=== PATIENT | female | born 1990 | race Caucasian/White ===

== ENCOUNTER 2017-12-23 13:30 | Inpatient (IN) | payer OTHER ==
[2017-12-23] MEDS ORDERED: ELECTROLYTE-148 SOLN 1,000 ML IV SCH (14:15)
[2017-12-23 14:28] VITALS: BMI 31.0
[2017-12-23] MEDS ORDERED: CITRIC ACID/SODIUM CITRATE 30 ML UNIT-DOSE CUP PO ONE (14:30)
--- NOTE | 2017-12-23 14:40 | HP ---
Past Medical History - Primary Care Physician PCP:: Lorenzo Black - Admission Chief Complaint: 38weeks, previous c/s , cholestasis of , request for sterlization History of Present Illness: 27 yo f g 4 p2012 , edc 513/18 by date 12/2217 by cabrera referred by DR ailyn CHASE for repeat c/s , patient requesting repeat c/s and tubal ligation, aware BTL is permanent,and not reversiable, has small failure risks and risks of ectopic, ulternatives explained History Source: Patient Limitations to Obtaining History: No Limitations - Past Medical History ...: 4 ...Para: 2 ...Term: 2 ...: 0 ...Spon : 1 ...Induced : 0 ...Multiple Gestation: 0 ...LMP: 03/28/17 ... Weeks Gestation by Dates: 38.3 ...EDC by Dates: 01/02/18 ...EDC by Sono: 01/11/18 - Past Surgical History Past Surgical History: Yes: Hx Myomectomy: No Hx Transabdominal Cerclage: No - Smoking History Smoking history: Never smoked Have you smoked in the past 12 months: No - Alcohol/Substance Use Hx Alcohol Use: No History of Substance Use: reports: None - Social History History of Recent Travel: No Home Medications - Allergies Allergies/Adverse Reactions: Allergies Allergy/AdvReac Type Severity Reaction Status Date / Time No Known Allergies Allergy Verified 09/02/14 06:36 - Home Medications Home Medications: Ambulatory Orders Acetaminophen [Tylenol .Regular Strength -] 650 mg PO Q4H PRN #0 tablet Ibuprofen Injection [Caldolor Injection -] 800 mg IVPB Q8H PRN #0 ij 09/03/14 Review of Systems - Review of Systems Constitutional: reports: No Symptoms Eyes: reports: No Symptoms HENT: reports: No Symptoms, Nasal Congestion Neck: reports: No Symptoms Cardiovascular: reports: No Symptoms Respiratory: reports: No Symptoms Gastrointestinal: reports: No Symptoms Genitourinary: reports: No Symptoms Musculoskeletal: reports: No Symptoms Integumentary: reports: Rash Neurological: reports: No Symptoms Endocrine: reports: No Symptoms Hematology/Lymphatic: reports: No Symptoms Psychiatric: reports: No Symptoms Physical Exam - Maternity Vital Signs: Vital Signs Temperature 98.6 F 12/23/17 13:30 Pulse Rate 86 12/23/17 13:30 Respiratory Rate 18 12/23/17 13:30 Blood Pressure 105/68 12/23/17 13:30 O2 Sat by Pulse Oximetry (%) Constitutional: Yes: Well Nourished, No Distress, Calm Eyes: Yes: WNL, Conjunctiva Clear, EOM Intact HENT: Yes: WNL, Atraumatic, Normocephalic Neck: Yes: WNL, Supple, Trachea Midline Cardiovascular: Yes: WNL, Regular Rate and Rhythm Breast(s): Yes: WNL - Abdominal Exam/OB Fundal Height: 38 Number of Fetuses: Single Presentation: Vertex Intensity: Unaware Monitor Mode: External Heart Rate Location: [facility] Category: I - Vaginal Exam/OB Vaginal Bleediing: No Speculum Exam: No Dilatation (cm): closed Effacement (%): 0 Amniotic Membrane Status: Intact Presentation: Vertex/Position Station: -3 - Physical Exam Musculoskeletal: Yes: WNL Extremities: Yes: WNL Edema: LLE: Trace, RLE: Trace Integumentary: Yes: Rash Deep Tendon Reflex Grade: Normal +2 Hemorrhage Risk Assessment - Risk Factors Medium Risk Factors: Yes: Prior , uterine surgery,or multiple laparotomies Risk Score: 1 Risk Level: Medium Risk Problem List - Problems (1) with 38 completed weeks gestation Code(s): Z3A.38 - 38 WEEKS GESTATION OF (2) Previous section Code(s): Z98.891 - HISTORY OF UTERINE SCAR FROM PREVIOUS SURGERY (3) Cholestasis during Code(s): O26.619 - LIVER AND BILIARY TRACT DISORD IN , UNSP TRIMESTER; K83.1 - OBSTRUCTION OF BILE DUCT Qualifiers: Trimester: third trimester Qualified Code(s): O26.613 - Liver and biliary tract disorders in , third trimester; K83.1 - Obstruction of bile duct ; K83.1 - Obstruction of bile duct (4) Sterilization Code(s): Z30.2 - ENCOUNTER FOR STERILIZATION Assessment/Plan admit , for repeat c/s, BTL, rba discussed
[2017-12-23] MEDS ORDERED: morphine SULFATE/Preservative Free 0.5 MG/ML (1cc Syringe) ONE (15:34)
[2017-12-23] MEDS ORDERED: ceFAZolin SODIUM 1 GM VIAL ONE ×2 (15:45→19:26)
[2017-12-23] MEDS ORDERED: ePHEDrine SULFATE 50 MG/1 ML AMPULE ONE (15:49)
[2017-12-23] MEDS ORDERED: OXYTOCIN 20 UNITS in 0.9% NS 20 UNIT/1,000 ML INFUS.BAG IV ONE ×2 (15:55→17:27)
[2017-12-23] MEDS ORDERED: IBUPROFEN 600 MG TABLET (FP) PO PRN (16:12)
[2017-12-23] MEDS ORDERED: ONDANSETRON 4 MG/2 ML VIAL IVPUSH PRN (16:12)
[2017-12-23] MEDS ORDERED: morphine SULFATE/Preservative Free 0.5 MG/ML (1cc Syringe) SPIN ONE (16:30)
[2017-12-23] MEDS ORDERED: oxyCODONE HCL 5 MG TABLET PO PRN ×2 (16:38)
[2017-12-23] MEDS ORDERED: METHYLERGONOVINE MALEATE 0.2 MG/1 ML AMP IM PRN (16:38)
[2017-12-23] MEDS ORDERED: BENZOCAINE 28 GM HEMORRHOIDAL OINTMENT PR PRN (16:38)
[2017-12-23] MEDS ORDERED: BENZOCAINE 20% 57 GM BOTTLE TP PRN (16:38)
[2017-12-23] MEDS ORDERED: WITCH HAZEL 50% (TUCKS) 40 PAD/JAR PAD TP PRN (16:38)
[2017-12-23] MEDS ORDERED: BUTORPHANOL TARTRATE 1 MG/ML VIAL IVPUSH PRN (16:41)
[2017-12-23] MEDS ORDERED: DEXTROSE 5%-LACTATED RINGERS 1,000 ML IV SCH (16:45)
[2017-12-23] MEDS ORDERED: OXYTOCIN 20 UNITS in 0.9% NS 20 UNIT/1,000 ML INFUS.BAG IV SCH ×2 (16:45→18:15)
[2017-12-23] MEDS ORDERED: diphenhydrAMINE HCL 25 MG CAPSULE (FP) PO PRN (16:59)
[2017-12-23] MEDS ORDERED: PROMETHAZINE HCL 25 MG/1 ML VIAL IVPB ONE (17:00)
[2017-12-23] MEDS ORDERED: OXYTOCIN 20 UNITS in 0.9% NS 1000 ML INFUS.BAG IV ONE (17:15)
[2017-12-23] MEDS: CEFAZOLIN 1 GM in DEXTROSE 5%-WATER - 50 ML IVPB SCH (18:55)
[2017-12-23] MEDS ORDERED: IBUPROFEN 800 MG/8 ML IJ IVPB ONE (19:27)
[2017-12-23] MEDS: IBUPROFEN 800 MG/8 ML IJ IVPB PRN (19:45)
[2017-12-24] MEDS ORDERED: OXYTOCIN 20 UNITS in 0.9% NS 20 UNIT/1,000 ML INFUS.BAG IV SCH (00:44)
[2017-12-24] MEDS: IBUPROFEN 800 MG/8 ML IJ IVPB PRN ×2 (01:23→15:10)
[2017-12-24] MEDS: CEFAZOLIN 1 GM in DEXTROSE 5%-WATER - 50 ML IVPB SCH ×3 (02:38→17:10)
[2017-12-24] MEDS: ACETAMINOPHEN 325 MG TABLET (FP) PO PRN ×2 (05:15→22:20)
[2017-12-24 07:49] LABS: BASO % 0.5 % (0-2.0); EOS % 0.2 % (0-4.5); HEMATOCRIT 34.1 % (32.4-45.2); HEMOGLOBIN 11.5 GM/dL (10.7-15.3); LYMPH % 16.2 % (8-40); MCH 31.5 pg (25.7-33.7); MCHC 33.9 g/dl (32.0-36.0); MEAN CELL VOLUME 92.8 fl (80-96); MEAN PLT VOLUME 10.5 fl (7.5-11.1); MONO % 6.6 % (3.8-10.2); NEUT % 76.5 % (42.8-82.8); PLATELET COUNT 174 K/MM3 (134-434); RBC 3.67 M/mm3 (3.60-5.2); RDW 13.6 % (11.6-15.6); WHITE BLOOD COUNT 9.7 K/mm3 (4.0-10.0)
[2017-12-24] MEDS ORDERED: DEXTROSE 5%-WATER - 50 ML IVPB ONE (09:11)
[2017-12-24] MEDS ORDERED: ceFAZolin SODIUM 1 GM VIAL ONE (09:11)
[2017-12-24] MEDS: ENOXAPARIN NA (PORCINE) 40 MG/0.4 ML DISP.SYRIN SQ SCH (09:27)
--- NOTE | 2017-12-24 14:21 | PN ---
Progress Note (short form) - Note Progress Note: POD #1 - s/p repeat /left tubal ligation (h/o right ectopic) under spinal anesthesia with duramorph. VSS. Pt. doing well, sitting up comfortably in chair. No complaints. Good pain control. No apparent anesthetic complications noted. Continue current care.
[2017-12-24] MEDS ORDERED: BISACODYL 10 MG SUPP.RECT RC PRN (16:39)
--- NOTE | 2017-12-24 19:52 | PN ---
Post Progress Note - Subjective Subjective: 27 yo Para 3 status post repeat , seen and evaluated. Doing well. Post Day: 1 Type of Delivery: Repeat C/S Vital Signs: Vital Signs Temperature 98.3 F 12/24/17 13:00 Pulse Rate 70 12/24/17 13:00 Respiratory Rate 18 12/24/17 15:00 Blood Pressure 123/70 12/24/17 13:00 O2 Sat by Pulse Oximetry (%) 99 12/23/17 17:30 Breast Exam: Yes: Soft Uterus: Yes: Fundus @ umbilicus Incision: Yes: Dressing dry and intact Abdomen/GI: Yes: Abdomen soft, Tolerating PO Lochia: Yes: Rubra Lochia, amount: Small Extremities: Yes: Calves non-tender Activity: Ambulating - Labs Labs: CBC WBC 9.7 K/mm3 (4.0-10.0) D 12/24/17 07:06 RBC 3.67 M/mm3 (3.60-5.2) 12/24/17 07:06 Hgb 11.5 GM/dL (10.7-15.3) 12/24/17 07:06 Hct 34.1 % (32.4-45.2) 12/24/17 07:06 MCV 92.8 fl (80-96) 12/24/17 07:06 MCH 31.5 pg (25.7-33.7) 12/24/17 07:06 MCHC 33.9 g/dl (32.0-36.0) 12/24/17 07:06 RDW 13.6 % (11.6-15.6) 12/24/17 07:06 Plt Count 174 K/MM3 (134-434) 12/24/17 07:06 MPV 10.5 fl (7.5-11.1) 12/24/17 07:06 Neutrophils % 76.5 % (42.8-82.8) 12/24/17 07:06 Lymphocytes % 16.2 % (8-40) D 12/24/17 07:06 Monocytes % 6.6 % (3.8-10.2) 12/24/17 07:06 Eosinophils % 0.2 % (0-4.5) 12/24/17 07:06 Basophils % 0.5 % (0-2.0) 12/24/17 07:06 Problem List - Problems (1) Status post repeat low transverse section Code(s): Z98.891 - HISTORY OF UTERINE SCAR FROM PREVIOUS SURGERY Assessment/Plan Status post repeat Low transverse Stable Ambulation Analgesia as needed Continue routine Post op care
[2017-12-24] MEDS: SIMETHICONE 80 MG TAB.CHEW (FP) PO PRN (22:17)
[2017-12-24] MEDS: IBUPROFEN 600 MG TABLET (FP) PO PRN (22:17)
--- NOTE | 2017-12-25 02:14 | PN ---
Post Progress Note - Subjective Subjective: 27 yo status post repeat , seen and evaluated. Doing well. Post Day: 2 Type of Delivery: Repeat C/S Vital Signs: Vital Signs Temperature 98.8 F 12/24/17 22:00 Pulse Rate 67 12/24/17 22:00 Respiratory Rate 18 12/24/17 22:00 Blood Pressure 113/66 12/24/17 22:00 O2 Sat by Pulse Oximetry (%) 99 12/23/17 17:30 Breast Exam: Yes: Soft Uterus: Yes: Fundus Firm Incision: Yes: Dressing dry and intact Abdomen/GI: Yes: Abdomen soft, Tolerating PO Lochia: Yes: Rubra Lochia, amount: Small Extremities: Yes: Calves non-tender Activity: Ambulating - Labs Labs: CBC WBC 9.7 K/mm3 (4.0-10.0) D 12/24/17 07:06 RBC 3.67 M/mm3 (3.60-5.2) 12/24/17 07:06 Hgb 11.5 GM/dL (10.7-15.3) 12/24/17 07:06 Hct 34.1 % (32.4-45.2) 12/24/17 07:06 MCV 92.8 fl (80-96) 12/24/17 07:06 MCH 31.5 pg (25.7-33.7) 12/24/17 07:06 MCHC 33.9 g/dl (32.0-36.0) 12/24/17 07:06 RDW 13.6 % (11.6-15.6) 12/24/17 07:06 Plt Count 174 K/MM3 (134-434) 12/24/17 07:06 MPV 10.5 fl (7.5-11.1) 12/24/17 07:06 Neutrophils % 76.5 % (42.8-82.8) 12/24/17 07:06 Lymphocytes % 16.2 % (8-40) D 12/24/17 07:06 Monocytes % 6.6 % (3.8-10.2) 12/24/17 07:06 Eosinophils % 0.2 % (0-4.5) 12/24/17 07:06 Basophils % 0.5 % (0-2.0) 12/24/17 07:06 Problem List - Problems (1) Status post repeat low transverse section Code(s): Z98.891 - HISTORY OF UTERINE SCAR FROM PREVIOUS SURGERY Assessment/Plan Status post repeat Low transverse Stable Ambulation Analgesia as needed Continue routine Post op care
[2017-12-25] MEDS: ENOXAPARIN NA (PORCINE) 40 MG/0.4 ML DISP.SYRIN SQ SCH (09:49)
[2017-12-25] MEDS: ACETAMINOPHEN 325 MG TABLET (FP) PO PRN ×2 (10:47→20:55)
[2017-12-25] MEDS: SIMETHICONE 80 MG TAB.CHEW (FP) PO PRN ×2 (10:49→20:55)
[2017-12-25] MEDS: IBUPROFEN 600 MG TABLET (FP) PO PRN ×2 (10:49→20:56)
[2017-12-25] MEDS ORDERED: SENNOSIDES/DOCUSATE COMBO (SENNA PLUS) TABLET (UD) PO PRN (22:00)
--- NOTE | 2017-12-26 07:53 | DS ---
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 Vital Signs: Vital Signs Temperature 98.0 F 12/25/17 21:55 Pulse Rate 65 12/25/17 21:55 Respiratory Rate 20 12/25/17 21:55 Blood Pressure 110/64 12/25/17 21:55 O2 Sat by Pulse Oximetry (%) 99 12/23/17 17:30 Constitutional: Yes: Well Nourished Eyes: Yes: Conjunctiva Clear HENT: Yes: Atraumatic Neck: Yes: Supple Cardiovascular: Yes: Regular Rate and Rhythm Respiratory: Yes: Regular Gastrointestinal: Yes: Normal Bowel Sounds Pelvis: Yes: WNL External Genitalia: Yes: Normal Vaginal Exam: Yes: Normal Cervix: Yes: Normal Uterus: Yes: Firm Breast(s): Yes: WNL Musculoskeletal: Yes: WNL Extremities: Yes: WNL Wound/Incision: Yes: Well Approximated, [place] Intact Neurological: Yes: Alert, Oriented ...Motor Strength: WNL Psychiatric: Yes: Alert, Oriented Labs: CBC, BMP 12/24/17 07:06 Delivery - Delivery Type of Anesthesia: Spinal Episiotomy/Laceration: None EBL (cc): 500 Delivery, Single - Stages of Labor Date of Delivery: 12/23/17 Time of Delivery: 15:59 Time Placenta Delivered: 16:01 - Condition of Tack Driller/Front Desk Lead Present: Yes Name: Yesy Muller Gender: Female Weight: 6 lb 12 oz Position: Left, OT Total Hours ROM (Hrs/Mins): 2min - 1 Minute Total Score: 9 5 Minutes Total Score: 9 - Feeding Plan Initial Plan: Elected not to breastfeed exclusively throughout hospitalization Discharge Summary Reason For Visit: Current Active Problems Cholestasis during (Acute) with 38 completed weeks gestation (Acute) Previous section (Acute) Status post repeat low transverse section (Acute) Sterilization (Acute) Procedures: Principal: Hospital Course: Routine post op care Condition: Good - Instructions Diet, Activity, Other Instructions: Regular diet No driving, no lifting x 4 weeks F/u in clinic in 1 week for mayuri removal. - Home Medications Comprehensive Discharge Medication List: Ambulatory Orders Vit/Iron Fum/Folic AC [ Tablet] 1 tab PO DAILY 12/24/17
[2017-12-26 08:22] LABS: BASO % 0.4 % (0-2.0); EOS % 1.3 % (0-4.5); HEMATOCRIT 30.9 % (32.4-45.2); HEMOGLOBIN 10.4 GM/dL (10.7-15.3); LYMPH % 12.9 % (8-40); MCH 31.2 pg (25.7-33.7); MCHC 33.6 g/dl (32.0-36.0); MEAN CELL VOLUME 92.7 fl (80-96); MEAN PLT VOLUME 9.5 fl (7.5-11.1); MONO % 4.9 % (3.8-10.2); NEUT % 80.5 % (42.8-82.8); PLATELET COUNT 236 K/MM3 (134-434); RBC 3.33 M/mm3 (3.60-5.2); RDW 13.5 % (11.6-15.6); WHITE BLOOD COUNT 11.1 K/mm3 (4.0-10.0)
[2017-12-26] MEDS: ENOXAPARIN NA (PORCINE) 40 MG/0.4 ML DISP.SYRIN SQ SCH (09:34)
[2017-12-26] MEDS: ACETAMINOPHEN 325 MG TABLET (FP) PO PRN (09:36)
[2017-12-26] MEDS: IBUPROFEN 600 MG TABLET (FP) PO PRN (09:36)
[2017-12-26 10:34] VITALS: BP 97/58; PULSE 68; TEMP 98.5
--- NOTE | 2017-12-31 17:00 | PATH ---
Surgical Pathology Report Patient Name: TANIYA MCKOY Med. Rec. 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 Specimen(s) Received A: PLACENTA B: LEFT FALLOPIAN TUBE(RIGHT TUBE REMOVED 2014) Clinical History 38.3 weeks gestation, history of cholestasis during , Final Diagnosis A. PLACENTA, SECTION: 518 g THIRD TRIMESTER PLACENTA WITH TRIVASCULAR UMBILICAL CORD AND PLACENTAL MEMBRANES WITH MECONIUM-LADEN MACROPHAGES. B. FALLOPIAN TUBE, LEFT, PARTIAL EXCISION: FULL LUMINAL PORTION OF UNREMARKABLE FALLOPIAN TUBE. Electronically Signed Gladys Oviedo M.D. Gross Description A. The specimen is received fresh labeled placenta and is a 518 gram, 15.0 x 14.0 x 3.8 cm. placenta with attached membranes and umbilical cord. The attached membranes are stinson green, meconium stained, translucent with focal opacities and insert marginally. The umbilical cord measures 27 cm. in length and averages 1.4 cm. in diameter. The cord inserts eccentrically, 4 cm. to the nearest margin. No true knots or strictures are identified. Cut surface of the umbilical cord reveals 3 vessels. The surface is prasad green, meconium stained with moderate fibrin deposition and appropriate caliber vessels. The maternal surface is red-brown with focal defects. Sectioning reveals red-brown, spongy parenchyma. No lesions are identified. Electrical Test Engineer sections are submitted in three cassettes as follows: 1- membrane rolls and umbilical cord; 2-3- full thickness sections of placenta. B. Received in formalin labeled "left tube," is a 1.2 cm in length portion of fallopian tube. No fimbria are present. The outer surface is stinson krueger and smooth. Sectioning reveals an unremarkable lumen. Electrical Test Engineer sections are submitted in one cassette. /12/30/2017 saudi12/30/2017
== END 2017-12-26 11:30 | disposition home or self-care (01) | DRG 540 ==
LOC: JLDR 13:30 → J3N 20:12 → J3W 12-24 14:06
PROVIDERS: ADMIT Obstetrics & Gynecology; ATTEND Obstetrics & Gynecology
PROC: 10D00Z1 Extraction of Products of Conception, Low, Open Approach (ICD-10-PCS; principal; 2017-12-23)
PROC: 0UL70ZZ Occlusion of Bilateral Fallopian Tubes, Open Approach (ICD-10-PCS; 2017-12-23)
DX: O34.219 Maternal care for unspecified type scar from previous cesarean delivery (principal); O26.619 Liver and biliary tract disorders in pregnancy, unspecified trimester; K83.1 Obstruction of bile duct; Z3A.38 38 weeks gestation of pregnancy; Z37.0 Single live birth; Z30.2 Encounter for sterilization
CPT/HCPCS: 36415; 85025; 88302-TC; 88307-TC